=== PATIENT | male | born 1950 | race Caucasian/White ===

== ENCOUNTER → 2017-12-04 | Day surgery (SDC) | payer MEDICARE ==
[2017-12-03 16:42] LABS: BASOPHILS # (AUTO) 0.1 (0.0-0.1); BASOPHILS % 0.8 % (0.0-1.0); EOSINOPHILS # (AUTO) 0.5 (0.0-0.4); EOSINOPHILS % 4.6 % (0.0-6.0); HEMATOCRIT 42.9 % (38.2-49.6); HEMOGLOBIN 15.1 g/dL (14.0-18.0); LYMPHOCYTES # (AUTO) 2.6 (1.0-3.2); LYMPHOCYTES % 26.3 % (18.0-39.1); MEAN CORPUSCULAR HEMOGLOBIN 30.3 pg (28-32); MEAN CORPUSCULAR HGB CONC 35.2 g/dL (31-35); MONOCYTES # (AUTO) 0.7 (0.2-0.8); MONOCYTES % 7.4 % (4.4-11.3); NEUTROPHILS # (AUTO) 5.9 (2.1-6.9); NEUTROPHILS % 59.9 % (38.7-80.0); PLATELET COUNT 287 x10e3/uL (140-360); RED BLOOD COUNT 4.99 x10e6/uL (4.3-5.7); RED CELL DISTRIBUTION WIDTH 13.1 % (11.7-14.4)
[2017-12-03 16:57] LABS: ANION GAP 13.6 mmol/L (8-16); BLOOD UREA NITROGEN 19 mg/dL (7-26); BUN/CREATININE RATIO 16 (6-25); CALCIUM 10.6 mg/dL (8.4-10.2); CARBON DIOXIDE 28 mmol/L (22-29); CHLORIDE 103 mmol/L (98-107); CREATININE, SERUM 1.19 mg/dL (0.72-1.25); EST GLOMERULAR FILTRATION RATE > 60 ML/MIN (60-); GLUCOSE 179 mg/dL (74-118); POTASSIUM 4.6 mmol/L (3.5-5.1); SODIUM 140 mmol/L (136-145)
[2017-12-04] VITALS (9 sets, daily range): BP systolic 115–139; BP diastolic 70–105
[~2017-12-04] VITALS: Ht 182.9 cm; Wt 87.5 kg
[~2017-12-04] MED LIST: ASPIRIN325 MG PO; ATORVASTATIN CA20 MG PO; BACITRACIN 50,000 UNIT VIAL ONE; CLOPIDOGREL75 MG PO; FENTANYL CITRATE/PF 100MCG/2 ML INJ ONE; GLIMEPIRIDE2 MG PO; LIDOCAINE HCL 2% LOCAL 20 ML VIAL ONE; LORAZEPAM INJ 2 MG/ML VIAL ONE; LYSINE500 MG PO; METFORMIN HCL500 MG PO; MIDAZOLAM HCL 2 MG/2 ML VIAL ONE; MULTI-VITAMIN1 EACH PO; QUINAPRIL HCL20 MG PO; SERTRALINE HCL100 MG PO; SODIUM CHLORIDE 0.9% 1000ML 1,000 ML ONE; VANCOMYCIN 1GM/NS 250 ML 250 ML ONE
--- NOTE | 2017-12-06 18:30 | Operative Report ---
DATE OF PROCEDURE: December 04, 2017 DIAGNOSES: 1. Dehiscence at the center of incision over pacemaker in the left infraclavicular area. 2. Sick sinus syndrome with permanent pacemaker. 3. Coronary artery disease with history of coronary stenting. 4. Diabetes mellitus. 5. Hypertension. PROCEDURE: Debridement of the incision with revision of the exposed wire and primary closure of the incision. ANESTHESIA: Moderate sedation and local anesthetic. The patient came to my office on the 03 of December for routine evaluation of his pacemaker. On inspection of the pacemaker site, there was a scab in the center of the incision, and after questioning the patient, he indicated that he had noted an opening in this area about 10 days ago. There was no drainage, no redness and he applied Neosporin ointment and there was intermittent formation of scab to cover the opening. On closer inspection, I noted still in the region of the subcutaneous tissue a pacemaker wire arching across the lower portion of the opening. However, there was no drainage and the wound was dry. I applied dressing over the area and started the patient on Vibramycin with 200 mg on the 03 of December and then instructions to take 100 mg daily. The patient now came to the hospital for repair of the wound. The patient was taken to the scientific laboratory supervisor and after prepping and draping of the left infraclavicular area and administering moderate sedation, local anesthetic was applied into the area. The patient also was given 1 g of vancomycin, which was started about 1 hour prior to the procedure. Under closer inspection, it was noted that the wound was still dry with irregular edges and the wound measured about 2 cm in length and about 1 cm in width and in the center of the opened wound, there was wire, which was exposed about 1 cm in length, however, it was still within the wound and not on the outside. An incision was then made over the old incision since the opening occurred within the old incision and the edges were inspected and debridement was performed. Prior to that, also a swab for MRSA and culture was obtained. The incision was then widened with blunt dissection to accommodate the wire to a deeper layer. It was noted that the medial aspect of the wire was somewhat mobile while the lateral aspect was embedded in very dense fibrotic scar tissue. It is also not possible from this small incision which was only 2 inches in length to decide if this was actually one of the pacemaker electrodes or one of the adapters since the patient required adapters for the atrial and ventricular electrodes when he needed redo of his pacemaker in 2014 and this is quite surprising that the wound opened after 3 years while there have been no previous problem at the pacemaker site and there was no previous infection, drainage, or swelling. However, after the debridement and the exposed wire was accomplished, the incision was then lavaged with antibiotic solution. Subcutaneous tissue was then closed with continuous suture and skin was closed with interrupted sutures. Dressing was applied with Steri-Strips and the patient transferred to the outpatient department. He will be observed for approximately 2 hours and if stable, he will be discharged and followed as outpatient. Even the wound was dry and there was no evidence of any secretion at all, certainly no purulent secretion, however, because of the exposed wire which apparently happened about 10 days prior to the repair, I will maintain the patient on antibiotic treatment and also will obtain consultation with infectious disease physician for further recommendation. In the meantime, the patient will continue his home medication and his low-cholesterol diabetic diet and will be followed closely as outpatient. Job#: [id number] cc:HANDY MUÑOZ DO
== END | disposition home or self-care (01) ==
LOC: CATH LAB 12:05
PROVIDERS: ATTEND Internal Medicine Cardiovascular Disease
DX: T81.31XA Disruption of external operation (surgical) wound, not elsewhere classified, initial encounter (principal); T82.897A Other specified complication of cardiac prosthetic devices, implants and grafts, initial encounter; I49.5 Sick sinus syndrome; I25.10 Atherosclerotic heart disease of native coronary artery without angina pectoris; I10 Essential (primary) hypertension; Z95.5 Presence of coronary angioplasty implant and graft; Z95.0 Presence of cardiac pacemaker; E11.9 Type 2 diabetes mellitus without complications; Y83.8 Other surgical procedures as the cause of abnormal reaction of the patient, or of later complication, without mention of misadventure at the time of the procedure; Z01.812 Encounter for preprocedural laboratory examination; Z79.82 Long term (current) use of aspirin; Z79.02 Long term (current) use of antithrombotics/antiplatelets; Z79.84 Long term (current) use of oral hypoglycemic drugs
CPT/HCPCS: 33222; 36415; 80048; 85025; 87081; J2001; J2060; J2250; J3370; J7030